=== PATIENT | female | born 1990 | race Caucasian/White ===

== ENCOUNTER 2017-06-03 04:02 | Emergency (ER) | payer OTHER ==
[2017-06-03 05:21] VITALS: TEMP 98.1; BMI 19.2
--- NOTE | 2017-06-03 06:11 | PDOC ---
History of Present Illness - General Chief Complaint: Pain Stated Complaint: ABDOMINAL PAIN Time Seen by Provider: 06/03/17 05:41 History Source: Patient, Family Exam Limitations: Language Barrier ( was translating) - History of Present Illness Initial Comments: 06/03/17 06:07 The patient is a 26F with no PMH who presents to the ED with worsening abdominal pain. The is translating and providing the history. The pain started 1 year ago and acutely worsened overnight. The patient gets this pain normally after eating food. The worsening pain started around midnight today. It radiates to her b/l flanks. She has also been bleeding every day through 3-4 pads. She is complaining of pain and itchiness in her vagina with a rash. There is a questionable odor also from her genital area. LMP: may 18, normal SH: none Soc: none All: none Past History - Past Medical History Allergies/Adverse Reactions: Allergies Allergy/AdvReac Type Severity Reaction Status Date / Time No Known Allergies Allergy Verified 06/03/17 05:19 Home Medications: Ambulatory Orders NK [No Known Home Medication] 06/03/17 - Psycho/Social/Smoking Cessation Hx Suicidal Ideation: No Smoking History: Never smoked Have you smoked in the past 12 months: No Information on smoking cessation initiated: No Hx Alcohol Use: No Drug/Substance Use Hx: No Review of Systems - Review of Systems Able to Perform ROS?: Yes Is the patient limited Malay proficient: Yes Constitutional: Yes: Loss of Appetite. No: Chills, Fever ABD/GI: Yes: Nausea. No: Vomiting : Yes: Flank Pain, Pain, Other (pruritis). No: Burning Integumentary: Yes: Rash Neurological: No: Headache, Numbness, Tingling, Weakness *Physical Exam - Vital Signs Last Vital Signs Temp Pulse Resp BP Pulse Ox 98.1 F 63 14 99/65 100 06/03/17 05:19 06/03/17 05:19 06/03/17 05:19 06/03/17 05:19 06/03/17 05:19 - Physical Exam General Appearance: Yes: Nourished, Appropriately Dressed. No: Apparent Distress HEENT: positive: Normal Voice, Hearing Grossly Normal Respiratory/Chest: positive: Lungs Clear, Normal Breath Sounds. negative: Chest Tender, Respiratory Distress, Paradoxal Breathing, Crackles, Rales, Rhonchi, Stridor, Wheezing Cardiovascular: positive: Regular Rhythm, Regular Rate, S1, S2. negative: Diastolic Murmur, Systolic Murmur Female Pelvic Exam: positive: normal external exam, cervical os closed, normal adnexa, normal size ovaries. negative: CMT, discharge, lesions, Bartholin mass , adnexal tenderness, uterus, vaginal bleeding Gastrointestinal/Abdominal: positive: Flat, Soft. negative: Tender, Protuberent , Distended, Guarding, Rebound Musculoskeletal: negative: CVA Tenderness, CVA Tenderness (R), CVA Tenderness (L ) Extremity: positive: Normal Inspection. negative: Coldness, Swelling, Calf Tenderness Integumentary: positive: Dry, Warm. negative: Cold, Clammy, Diaphoresis, Swelling Neurologic: positive: Fully Oriented, Alert, Normal Mood/Affect, Motor Strength 02/12 ED Treatment Course - LABORATORY CBC & Chemistry Diagram: 06/03/17 06:19 06/03/17 06:19 Medical Decision Making - Medical Decision Making 06/03/17 06:12 The patient is a 26F who is presenting with periumbilical abdominal pain that started 1 year ago and acutely worsened overnight. I will do basic labs and reassess the patient. 06/03/17 07:00 Labs pending. Pt signed out to day team, Dr. Weber. *DC/Admit/Observation/Transfer Diagnosis at time of Disposition: Yeast infection of the vagina - Discharge Dispostion Disposition: HOME Condition at time of disposition: Good - Referrals Referrals: Sana Adame [Staff Physician] - Ysa Miller MD [Staff Physician] - Sarai Long MD [Staff Physician] - - Patient Instructions Printed Discharge Instructions: DI for Vaginal Yeast Infection Additional Instructions: Your vaginal itchiness and white thick discharge is likely a yeast infection. Take the medication as directed to resolve it. The cause of your abdominal pain was not found. Your lab test showed a high wbc count for which we do not have a cause. If you develop any concerning symptoms such as a fever, chest pain, shortness of breath, nausea and vomiting, return to ED. Please follow up with Dr. Long (PCP) and Dr. Miller (OBGYN) in the next week. Please see Dr. Adame to discuss your mood and anxiety. Print Language: INDONESIAN - Attestations Physician Attestion: 06/06/17 08:08 I, Dr. Gregorio David, attest that this document has been prepared under my direction and personally reviewed by me in its entirety. I further attest, that it accurately reflects all work, treatment, procedures, and medical decision- making performed by me.
[2017-06-03 06:53] LABS: BASOPHIL 0.4 % (0-2.0); EOSINOPHIL 0.2 % (0-4.5); MCH 31.5 pg (25.7-33.7); MCHC 34.5 g/dl (32.0-36.0); MEAN CELL VOLUME 91.3 fl (80-96); MEAN PLT VOLUME 9.7 fl (7.5-11.1); NEUTROPHILS 86.5 % (42.8-82.8); PLATELET COUNT 194 K/MM3 (134-434); RDW 12.6 % (11.6-15.6); WHITE BLOOD COUNT 16.4 K/mm3 (4.0-10.0)
[2017-06-03 06:56] LABS: URINE APPEARANCE CLEAR; URINE BILIRUBIN NEGATIVE (NEGATIVE); URINE BLOOD NEGATIVE (NEGATIVE); URINE COLOR YELLOW; URINE GLUCOSE (UA) NEGATIVE (NEGATIVE); URINE KETONE 1+ (NEGATIVE); URINE LEUK ESTERASE NEGATIVE (NEGATIVE); URINE NITRITE NEGATIVE (NEGATIVE); URINE PROTEIN NEGATIVE (NEGATIVE); URINE UROBILINOGEN NEGATIVE mg/dL (0.2-1.0)
[2017-06-03 07:17] LABS: ALBUMIN 4.4 g/dl (3.4-5.0); ALK PHOS 49 U/L (45-117); ANION GAP 7 (8-16); BILIRUBIN,TOTAL 0.7 mg/dL (0.2-1.0); CALCIUM 8.8 mg/dL (8.5-10.1); CO2 25 mmol/L (21-32); CREATININE 0.6 mg/dL (0.55-1.02); GLUCOSE,RANDOM 88 mg/dL (74-106); SGOT/AST 13 U/L (15-37); SGPT/ALT 30 U/L (12-78); TOT PROT 7.3 g/dl (6.4-8.2)
--- NOTE | 2017-06-03 07:21 | PDOC ---
*Physical Exam - Vital Signs Last Vital Signs Temp Pulse Resp BP Pulse Ox 98.1 F 63 14 99/65 100 06/03/17 05:19 06/03/17 05:19 06/03/17 05:19 06/03/17 05:19 06/03/17 05:19 - Physical Exam Comments: 06/03/17 07:16 Pt signed out to me by Dr. David. Pt is a 26F with 1 year of chronic abdominal pain with worsening pain since last night as well as vaginal bleeding , pruritis, pain, and rash. Pelvic exam was negative. 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 She reports that she has been having white vaginal discharge for a long time. She reports that her abdominal pain is resolved after bowel movements. She also reports insomnia, an irritable mood, decreased appetite, decreased concentration, and decreased energy. Pt denies ever going to see a therapist or psychologist. 06/03/17 10:18 ED Treatment Course - LABORATORY CBC & Chemistry Diagram: 06/03/17 06:19 06/03/17 06:19 - ADDITIONAL ORDERS Additional order review: Laboratory Results 06/03/17 06:19 Serum , Qual Negative Urine Color Yellow Urine Appearance Clear Urine pH 5.0 Urine Protein Negative Urine Glucose (UA) Negative Urine Ketones 1+ H Urine Blood Negative Urine Nitrite Negative Urine Bilirubin Negative Urine Urobilinogen Negative Ur Leukocyte Esterase Negative 06/03/17 06:19 RBC 4.20 MCV 91.3 MCHC 34.5 RDW 12.6 MPV 9.7 Neutrophils % 86.5 H Lymphocytes % 7.8 L Monocytes % 5.1 Eosinophils % 0.2 Basophils % 0.4 *DC/Admit/Observation/Transfer Diagnosis at time of Disposition: Yeast infection of the vagina - Discharge Dispostion Disposition: HOME Condition at time of disposition: Stable Admit: No - Referrals Referrals: Yas Miller MD [Staff Physician] - Sarai Long MD [Staff Physician] - Sana Adame [Staff Physician] - - Patient Instructions Printed Discharge Instructions: DI for Vaginal Yeast Infection Additional Instructions: Your vaginal itchiness and white thick discharge is likely a yeast infection. Take the medication as directed to resolve it. The cause of your abdominal pain was not found. Your lab test showed a high wbc count for which we do not have a cause. If you develop any concerning symptoms such as a fever, chest pain, shortness of breath, nausea and vomiting, return to ED. Please follow up with Dr. Long (PCP) and Dr. Miller (OBGYN) in the next week. Please see Dr. Adame to discuss your mood and anxiety. Print Language: KOSOVAN
--- NOTE | 2017-06-03 10:10 | PDOC ---
*Physical Exam - Vital Signs Last Vital Signs Temp Pulse Resp BP Pulse Ox 98.1 F 68 14 121/69 100 06/03/17 05:19 06/03/17 09:19 06/03/17 05:19 06/03/17 09:19 06/03/17 09:19 ED Treatment Course - LABORATORY CBC & Chemistry Diagram: 06/03/17 06:19 06/03/17 06:19 - ADDITIONAL ORDERS Additional order review: Laboratory Results 06/03/17 06/03/17 06/03/17 06:19 06:19 06:03 Sodium 138 Potassium 3.8 Chloride 106 Carbon Dioxide 25 Anion Gap 7 L BUN 18 Creatinine 0.6 Creat Clearance w eGFR > 60 Random Glucose 88 Calcium 8.8 Total Bilirubin 0.7 AST 13 L ALT 30 Alkaline Phosphatase 49 Total Protein 7.3 Albumin 4.4 Serum , Qual Negative Urine Color Yellow Urine Appearance Clear Urine pH 5.0 Urine Protein Negative Urine Glucose (UA) Negative Urine Ketones 1+ H Urine Blood Negative Urine Nitrite Negative Urine Bilirubin Negative Urine Urobilinogen Negative Ur Leukocyte Esterase Negative Blood Type O POSITIVE Antibody Screen Negative 06/03/17 06:19 RBC 4.20 MCV 91.3 MCHC 34.5 RDW 12.6 MPV 9.7 Neutrophils % 86.5 H Lymphocytes % 7.8 L Monocytes % 5.1 Eosinophils % 0.2 Basophils % 0.4 Medical Decision Making - Medical Decision Making 06/03/17 10:07 This patient presented to the ER with a complaint of abd pain There was some concern about HCG is negative Pt US demonstrates no torsion or large cyst Pt pain has been intermittently present for the past year Discharge to home Follow up with PMD (Ethan given as a referral) Follow up with dog handler (Asia given as a referral) Will treat white discharge (Diflucan) *DC/Admit/Observation/Transfer Diagnosis at time of Disposition: Yeast infection of the vagina - Discharge Dispostion Disposition: HOME Condition at time of disposition: Good - Referrals Referrals: Sana Adame [Staff Physician] - Yas Miller MD [Staff Physician] - Sarai Long MD [Staff Physician] - - Patient Instructions Printed Discharge Instructions: DI for Vaginal Yeast Infection Additional Instructions: Your vaginal itchiness and white thick discharge is likely a yeast infection. Take the medication as directed to resolve it. The cause of your abdominal pain was not found. Your lab test showed a high wbc count for which we do not have a cause. If you develop any concerning symptoms such as a fever, chest pain, shortness of breath, nausea and vomiting, return to ED. Please follow up with Dr. Long (PCP) and Dr. Miller (OBGYN) in the next week. Please see Dr. Adame to discuss your mood and anxiety. Print Language: LITHUANIAN
[2017-06-03] MEDS ORDERED: FLUCONAZOLE 150 MG TABLET PO ONE (10:23)
[2017-06-03] MEDS ORDERED: FLUCONAZOLE 100 MG TABLET (UD) ONE (10:35)
[2017-06-03 10:53] VITALS: BP 97/64; PULSE 75
== END 2017-06-03 10:53 | disposition home or self-care (01) ==
LOC: JER 04:02
DX: B37.3 Candidiasis of vulva and vagina (principal)
CPT/HCPCS: 36415; 76830-TC; 76856-TC; 80053; 81003; 84703; 85025; 86850; 86900; 86901; 87491; 87591; 99282-25

== ENCOUNTER 2018-02-08 00:55 | Inpatient (IN) | payer OTHER ==
[~2018-02-08 00:55] MED LIST: DEXTROSE 5%-LACTATED RINGERS 1,000 ML IV SCH
[2018-02-08] MEDS ORDERED: AMPICILLIN - 2 GM in SODIUM CHLORIDE 100 ML IVPB ONE (01:00)
[2018-02-08 01:37] VITALS: BMI 23.0
[2018-02-08 01:42] LABS: BASO % 0.5 % (0-2.0); EOS % 0.6 % (0-4.5); HEMATOCRIT 35.4 % (32.4-45.2); HEMOGLOBIN 12.3 GM/dL (10.7-15.3); LYMPH % 21.8 % (8-40); MCH 31.6 pg (25.7-33.7); MCHC 34.8 g/dl (32.0-36.0); MEAN CELL VOLUME 90.9 fl (80-96); MEAN PLT VOLUME 9.8 fl (7.5-11.1); MONO % 6.7 % (3.8-10.2); NEUT % 70.4 % (42.8-82.8); PLATELET COUNT 213 K/MM3 (134-434); WHITE BLOOD COUNT 14.1 K/mm3 (4.0-10.0)
[2018-02-08] MEDS ORDERED: BUTORPHANOL TARTRATE 1 MG/ML VIAL ONE (01:53)
[2018-02-08] MEDS ORDERED: PROMETHAZINE HCL 25 MG/1 ML VIAL ONE (01:53)
[2018-02-08 01:55] LABS: INR 0.89 (0.82-1.09); PROTHROMBIN TIME (PATIENT) 10.1 SEC (9.7-13.0)
[2018-02-08] MEDS ORDERED: BUTORPHANOL TARTRATE 1 MG/ML VIAL IVPUSH ONE (01:55)
[2018-02-08] MEDS ORDERED: PROMETHAZINE HCL 25 MG/1 ML VIAL IVPUSH ONE (01:55)
[2018-02-08 01:58] LABS: ACTIVATED PTT 24.8 SECONDS (26.9-34.4)
[2018-02-08 02:03] LABS: ANION GAP 10 (8-16); BLOOD UREA NITROGEN 9 mg/dL (7-18); CALCIUM 8.6 mg/dL (8.5-10.1); CHLORIDE 106 mmol/L (98-107); CO2 20 mmol/L (21-32); CREATININE 0.5 mg/dL (0.55-1.02); GLUCOSE,RANDOM 99 mg/dL (74-106); POTASSIUM 3.6 mmol/L (3.5-5.1); SODIUM 136 mmol/L (136-145)
[2018-02-08] MEDS ORDERED: OXYTOCIN 20 UNITS in 0.9% NS 20 UNIT/1,000 ML INFUS.BAG IV ONE ×2 (02:28→12:02)
--- NOTE | 2018-02-08 02:32 | HP ---
Past Medical History - Admission Chief Complaint: Labor pain History of Present Illness: 27 yo , LMP 05/13/17, EDC 02/17/18, @ 38 weeks gestation, admitted for labor pain. History Source: Patient Limitations to Obtaining History: No Limitations - Past Medical History ...: 3 ...Para: 2 ...Term: 2 ...: 0 ...Spon : 0 ...Induced : 0 ...Multiple Gestation: 0 ...LMP: 05/13/17 ... Weeks Gestation by Dates: 38.5 ...EDC by Dates: 02/17/18 ...EDC by Sono: 02/17/18 - Past Surgical History Past Surgical History: Yes: None Hx Myomectomy: No Hx Transabdominal Cerclage: No - Smoking History Smoking history: Never smoked Have you smoked in the past 12 months: No - Alcohol/Substance Use Hx Alcohol Use: No History of Substance Use: reports: None - Social History Usual Living Arrangement: Yes: With Significant Other History of Recent Travel: No Home Medications - Allergies Allergies/Adverse Reactions: Allergies Allergy/AdvReac Type Severity Reaction Status Date / Time No Known Allergies Allergy Verified 06/03/17 05:19 - Home Medications Home Medications: Ambulatory Orders Tablet 1 tablet PO DAILY 02/08/18 Family Disease History - Family Disease History Family History: Unremarkable Review of Systems - Review of Systems Constitutional: reports: No Symptoms Eyes: reports: No Symptoms HENT: reports: No Symptoms Neck: reports: No Symptoms Cardiovascular: reports: No Symptoms Respiratory: reports: No Symptoms Gastrointestinal: reports: No Symptoms Genitourinary: reports: Pain Breasts: reports: No Symptoms Reported Musculoskeletal: reports: No Symptoms Integumentary: reports: No Symptoms Neurological: reports: No Symptoms Endocrine: reports: No Symptoms Hematology/Lymphatic: reports: No Symptoms Psychiatric: reports: No Symptoms Pain Intensity: 7 Physical Exam - Maternity Vital Signs: Vital Signs Temperature 98.8 F 02/08/18 02:00 Pulse Rate 79 02/08/18 02:00 Respiratory Rate 18 02/08/18 02:00 Blood Pressure 106/65 02/08/18 02:00 O2 Sat by Pulse Oximetry (%) Constitutional: Yes: Well Nourished Eyes: Yes: Conjunctiva Clear HENT: Yes: Atraumatic Neck: Yes: Supple Cardiovascular: Yes: Regular Rate and Rhythm Lungs: Clear to auscultation - Abdominal Exam/OB Number of Fetuses: Single Presentation: Vertex Contractions: Yes - Vaginal Exam/OB Vaginal Bleediing: No Speculum Exam: No Dilatation (cm): 6 Amniotic Membrane Status: Intact Presentation: Vertex/Position Station: -2 - Physical Exam Musculoskeletal: Yes: WNL Extremities: Yes: WNL ...Motor Strength: WNL Psychiatric: Yes: Alert, Oriented - Labs Lab Results: CBC, BMP 02/08/18 01:20 02/08/18 01:20 Problem List - Problems (1) Code(s): Z34.90 - ENCNTR FOR SUPRVSN OF NORMAL , UNSP, UNSP TRIMESTER Qualifiers: Weeks of gestation: 38 weeks Qualified Code(s): Z3A.38 - 38 weeks gestation of Assessment/Plan IUP @ 38 weeks Active labor Analgesia as needed Anticipate
[2018-02-08] MEDS ORDERED: BISACODYL 10 MG SUPP.RECT RC PRN (03:40)
[2018-02-08] MEDS ORDERED: WITCH HAZEL 50% (TUCKS) 40 PAD/JAR PAD TP PRN (03:40)
[2018-02-08] MEDS ORDERED: BENZOCAINE 20% 57 GM BOTTLE TP PRN (03:40)
[2018-02-08] MEDS ORDERED: BENZOCAINE 28 GM HEMORRHOIDAL OINTMENT TP PRN (03:40)
[2018-02-08] MEDS ORDERED: METHYLERGONOVINE MALEATE 0.2 MG/1 ML AMP IM PRN (03:40)
--- NOTE | 2018-02-08 03:44 | PN ---
Delivery - Delivery Vaginal Delivery: Spontaneous Type of Anesthesia: Local, None Episiotomy/Laceration: 1st degree EBL (cc): 300 Delivery, Single - Stages of Labor Date 1st Stage Initiatied: 02/07/18 Time 1st Stage Initiated: 18:00 Date 2nd Stage Initiated: 02/08/18 Time 2nd Stage Initiated: 02:55 Date of Delivery: 02/08/18 Time of Delivery: 03:05 Time Placenta Delivered: 03:10 - Condition of Campaign Manager/Germination Testing Manager Present: No Infant Gender: Female Weight: 7 lb 2 oz Position: Right, OA Total Hours ROM (Hrs/Mins): 1H - 1 Minute Total Score: 9 5 Minutes Total Score: 9 - Feeding Plan Initial Plan: Elected not to breastfeed exclusively throughout hospitalization Remarks - Remarks Remarks: Normal spontaneous vaginal delivery of a live over first degree laceration. Nose / Oropharynx suctioned @ perineum. Cord clamped and cut. Placenta expelled spontaneously intact. Laceration repaired with 2.0 biosyn.
[2018-02-08] MEDS ORDERED: OXYTOCIN 20 UNITS in 0.9% NS 20 UNIT/1,000 ML INFUS.BAG IV SCH (03:45)
[2018-02-08] MEDS ORDERED: AMPICILLIN - 1 GM in SODIUM CHLORIDE 100 ML IVPB SCH (05:00)
[2018-02-08] MEDS: IBUPROFEN 600 MG TABLET (FP) PO PRN ×2 (07:42→12:14)
[2018-02-08] MEDS: FERROUS SO4 325 MG TABLET (FP) PO SCH ×3 (07:44→17:48)
[2018-02-08] MEDS: ACETAMINOPHEN 325 MG TABLET (FP) PO PRN ×2 (07:44→12:15)
[2018-02-08] MEDS: PRENATAL VITAMINS W/ FOLIC ACID TABLET (FP) PO SCH (09:07)
[2018-02-09] MEDS: FERROUS SO4 325 MG TABLET (FP) PO SCH ×3 (08:22→17:31)
[2018-02-09 08:23] LABS: BASO % 0.6 % (0-2.0); EOS % 1.4 % (0-4.5); HEMATOCRIT 34.2 % (32.4-45.2); HEMOGLOBIN 11.7 GM/dL (10.7-15.3); LYMPH % 26.6 % (8-40); MCH 31.2 pg (25.7-33.7); MCHC 34.1 g/dl (32.0-36.0); MEAN CELL VOLUME 91.3 fl (80-96); MEAN PLT VOLUME 9.5 fl (7.5-11.1); MONO % 5.6 % (3.8-10.2); NEUT % 65.8 % (42.8-82.8); PLATELET COUNT 203 K/MM3 (134-434); RBC 3.74 M/mm3 (3.60-5.2); RDW 13.1 % (11.6-15.6); WHITE BLOOD COUNT 13.1 K/mm3 (4.0-10.0)
[2018-02-09] MEDS: PRENATAL VITAMINS W/ FOLIC ACID TABLET (FP) PO SCH (09:51)
--- NOTE | 2018-02-09 11:05 | PN ---
Post Progress Note - Subjective Subjective: no complains except cramps Post Day: 1 Type of Delivery: Vital Signs: Vital Signs Temperature 98.3 F 02/09/18 07:25 Pulse Rate 69 02/09/18 07:25 Respiratory Rate 20 02/09/18 07:25 Blood Pressure 92/53 02/09/18 07:25 O2 Sat by Pulse Oximetry (%) Breast Exam: Yes: Soft, Other (bf ). No: Engorged Uterus: Yes: Fundus Firm, Fundus below umbilicus, Non-tender Lochia: Yes: Rubra Lochia, amount: Moderate Extremities: Yes: Calves non-tender Perineum: Yes: Laceration (perineum healing ) Activity: Ambulating - Labs Labs: CBC WBC 13.1 K/mm3 (4.0-10.0) H 02/09/18 07:30 RBC 3.74 M/mm3 (3.60-5.2) 02/09/18 07:30 Hgb 11.7 GM/dL (10.7-15.3) 02/09/18 07:30 Hct 34.2 % (32.4-45.2) 02/09/18 07:30 MCV 91.3 fl (80-96) 02/09/18 07:30 MCH 31.2 pg (25.7-33.7) 02/09/18 07:30 MCHC 34.1 g/dl (32.0-36.0) 02/09/18 07:30 RDW 13.1 % (11.6-15.6) 02/09/18 07:30 Plt Count 203 K/MM3 (134-434) 02/09/18 07:30 MPV 9.5 fl (7.5-11.1) 02/09/18 07:30 Neutrophils % 65.8 % (42.8-82.8) 02/09/18 07:30 Lymphocytes % 26.6 % (8-40) D 02/09/18 07:30 Monocytes % 5.6 % (3.8-10.2) 02/09/18 07:30 Eosinophils % 1.4 % (0-4.5) D 02/09/18 07:30 Basophils % 0.6 % (0-2.0) 02/09/18 07:30 Problem List - Problems (1) Vaginal delivery Code(s): O80 - ENCOUNTER FOR FULL-TERM UNCOMPLICATED DELIVERY Assessment/Plan stable plan ct pp care
[2018-02-09] MEDS: IBUPROFEN 600 MG TABLET (FP) PO PRN (17:34)
[2018-02-09] MEDS: ACETAMINOPHEN 325 MG TABLET (FP) PO PRN (17:34)
[2018-02-09] MEDS ORDERED: SENNOSIDES/DOCUSATE COMBO (SENNA PLUS) TABLET (UD) PO PRN (22:00)
--- NOTE | 2018-02-10 02:20 | DS ---
Physical Exam-CONSUMER ATTORNEY Vital Signs: Vital Signs Temperature 98.5 F 02/09/18 21:54 Pulse Rate 85 02/09/18 21:54 Respiratory Rate 18 02/09/18 21:54 Blood Pressure 106/71 02/09/18 21:54 O2 Sat by Pulse Oximetry (%) Constitutional: Yes: Well Nourished Eyes: Yes: Conjunctiva Clear HENT: Yes: Atraumatic Neck: Yes: Supple Cardiovascular: Yes: Regular Rate and Rhythm Respiratory: Yes: Regular Gastrointestinal: Yes: Normal Bowel Sounds External Genitalia: Yes: Normal Vaginal Exam: Yes: Normal Cervix: Yes: Normal Uterus: Yes: Firm ....Post : Yes: Uterus firm, Moderate lochia serosa Breast(s): Yes: WNL Musculoskeletal: Yes: WNL Extremities: Yes: WNL Neurological: Yes: Alert, Oriented ...Motor Strength: WNL Psychiatric: Yes: Alert, Oriented Labs: CBC, BMP 02/09/18 07:30 02/08/18 01:20 Delivery - Delivery Vaginal Delivery: Spontaneous Type of Anesthesia: Local, None Episiotomy/Laceration: 1st degree EBL (cc): 300 Delivery, Single - Stages of Labor Date 1st Stage Initiatied: 02/07/18 Time 1st Stage Initiated: 18:00 Date 2nd Stage Initiated: 02/08/18 Time 2nd Stage Initiated: 02:55 Date of Delivery: 02/08/18 Time of Delivery: 03:05 Time Placenta Delivered: 03:10 - Condition of Infant Pattern Keeper/Sample Dye Mixer Present: No Gender: Female Weight: 7 lb 2 oz Position: Right, OA Total Hours ROM (Hrs/Mins): 1H - 1 Minute Total Score: 9 5 Minutes Total Score: 9 - Feeding Plan Initial Plan: Elected not to breastfeed exclusively throughout hospitalization Discharge Summary Reason For Visit: LABOR ADMIT Current Active Problems (Acute) Vaginal delivery (Acute) Procedures: Principal: Spontaneous vaginal delivery Hospital Course: Routine care Condition: Good - Instructions Diet, Activity, Other Instructions: Regular diet No douching, no sexual intercourse x 6 weeks F/U with MD in 6 weeks Disposition: HOME - Home Medications Comprehensive Discharge Medication List: Ambulatory Orders Tablet 1 tablet PO DAILY 02/08/18
[2018-02-10 07:55] VITALS: BP 105/70; PULSE 70; TEMP 97.8
[2018-02-10] MEDS: FERROUS SO4 325 MG TABLET (FP) PO SCH ×2 (08:18→12:26)
[2018-02-10] MEDS: PRENATAL VITAMINS W/ FOLIC ACID TABLET (FP) PO SCH (09:33)
== END 2018-02-10 13:15 | disposition home or self-care (01) | DRG 560 ==
LOC: JLDR 00:55 → J3W 05:20
PROVIDERS: ADMIT Obstetrics & Gynecology; ATTEND Obstetrics & Gynecology
PROC: 0HQ9XZZ Repair Perineum Skin, External Approach (ICD-10-PCS; principal; 2018-02-08)
PROC: 10E0XZZ Delivery of Products of Conception, External Approach (ICD-10-PCS; 2018-02-08)
DX: O70.0 First degree perineal laceration during delivery (principal); Z3A.38 38 weeks gestation of pregnancy; Z37.0 Single live birth
CPT/HCPCS: 36415; 59409; 80048; 85025; 85610; 85730; 86593; 86850; 86900; 86901